=== PATIENT | male | born 1945 | race African-American/Black ===

== ENCOUNTER 2017-07-13 06:08 | Emergency (ER) | payer MEDICARE ==
[~2017-07-13] VITALS: Ht 167.6 cm; Wt 72.5 kg
[~2017-07-13 06:08] MED LIST: MEDR4PAK PO; NAPR500T PO; OMEP10CA PO
[2017-07-13 06:10] VITALS: BP 163/88; PULSE 63; RESP 16; TEMP 98.7; O2SAT 99
[2017-07-13] MEDS ORDERED: SODIUM CHLOR 0.9% 1000 ML INJ 1,000 ML IV ONE (06:45)
--- NOTE | 2017-07-13 06:55 | PD ---
HPI Chief Complaint: Abdominal Pain Time Seen by Provider: 06:31 Travel History International Travel<30 days: No Contact w/Intl Traveler<30days: No Traveled to known affect area: No History of Present Illness HPI This patient ate at a [employer] restaurant last night around 8 or 9 PM. Approximately one hour later he started to get diarrhea. He had diarrhea multiple times throughout the night. No nausea or vomiting or abdominal pain or fever. He feels well but just had a lot of diarrhea. Symptoms severity is mild. No alleviating factors. Duration 10 hours PFSH Past Medical History Medical History: Denies Significant Hx Arthritis: Yes Asthma: No Autoimmune Disease: No Blood Disorders: No Anxiety: No Depression: No Heart Rhythm Problems: No Cancer: No Cardiac Catheterization: No Cardiovascular Problems: No High Cholesterol: Yes Chemotherapy: No Chest Pain: No Congestive Heart Failure: No COPD: No Diabetes: No Diminished Hearing: No Endocrine: No GERD: Yes Genitourinary: No Hypertension: No Immune Disorder: No Inguinal Hernia: Yes Implanted Vascular Access Dvce: No Musculoskeletal: No Neurologic: No Psychiatric: No Reproductive: No Respiratory: No Immunizations Current: No Myocardial Infarction: No Radiation Therapy: No Sleep Apnea: No Thyroid Disease: No Triglycerides - High: Yes Tetanus Vaccination: < 5 Years Influenza Vaccination: No Past Surgical History Surgical History: No Previous Surgery Abdominal Surgery: No Cardiac Surgery: No Coronary Artery Bypass Graft: No Ear Surgery: No Endocrine Surgery: No Eye Surgery: No Genitourinary Surgery: No Gynecologic Surgery: No Neurologic Surgery: No Oral Surgery: No Thoracic Surgery: No Other Surgery: Yes (HERNIA SURGERY 06/04/10) Social History Alcohol Use: No Tobacco Use: No Substance Use: No Allergies-Medications (Allergen,Severity, Reaction): Coded Allergies: No Known Allergies (Verified , 11/22/16) Reported Meds & Prescriptions Reported Meds & Active Scripts Active Review of Systems General / Constitutional: No: Fever Eyes: No: Visual changes HENT: No: Headaches Cardiovascular: No: Chest Pain or Discomfort Respiratory: No: Shortness of Breath Gastrointestinal: Positive: Diarrhea, No: Abdominal Pain Genitourinary: No: Dysuria Musculoskeletal: No: Pain Skin: No Rash Neurologic: No: Weakness Psychiatric: No: Depression Endocrine: No: Polydipsia Hematologic/Lymphatic: No: Easy Bruising Physical Exam Narrative GENERAL: Well-nourished, well-developed patient in no apparent distress. SKIN: Focused skin assessment reveals no rash and nodules. Skin is Warm and dry. HEAD: Atraumatic. Normocephalic. EYES: Pupils equal and round. No scleral icterus. No injection or drainage. ENT: No nasal bleeding or discharge. Mucous membranes pink and moist. NECK: Trachea midline. No JVD. CARDIOVASCULAR: Regular rate and rhythm. No murmur appreciated. RESPIRATORY: No accessory muscle use. Clear to auscultation. Breath sounds equal bilaterally. GASTROINTESTINAL: Abdomen soft, non-tender, nondistended. Hepatic and splenic margins not palpable. MUSCULOSKELETAL: No obvious deformities. No clubbing. No cyanosis. No edema. NEUROLOGICAL: Awake and alert. No obvious cranial nerve deficits. Motor grossly within normal limits. Normal speech. PSYCHIATRIC: Appropriate mood and affect; insight and judgment normal. Data Data Last Documented VS Vital Signs Date Time Temp Pulse Resp B/P (MAP) Pulse Ox O2 Delivery O2 Flow Rate FiO2 07/13/17 06:10 98.7 63 16 163/88 (113) 99 Room Air Orders Orders Iv Access Insert/Monitor (07/13/17 06:44) Sodium Chlor 0.9% 1000 Ml Inj (Ns 1000 M (07/13/17 06:45) MDM Medical Decision Making Medical Screen Exam Complete: Yes Emergency Medical Condition: Yes Medical Record Reviewed: Yes Differential Diagnosis Food poisoning, colitis, gastroenteritis Narrative Course I have reviewed the patient's electronic medical record. Patient's exam is normal and he feels well. I suspect he had some degree of food poisoning IV placed I gave him 1 L normal saline IV He will orally hydrated home I expect gradual resolution over the next 48 hours Diagnosis Primary Impression: Food poisoning Qualified Codes: T62.91XA - Toxic effect of unspecified noxious substance eaten as food, accidental (unintentional), initial encounter Additional Instructions: The patient was advised to follow up with their physician and return if they worsen. Med/Other Pt SpecificInfo: Other Disposition: 01 DISCHARGE HOME Condition: Stable Jarad Kessler MD Jul 13, 2017 06:55
[2017-07-26] MEDS ORDERED: CREON12 PO (15:28)
[2017-09-04] MEDS ORDERED: ASPI-110 PO (16:29)
[2017-09-04] MEDS ORDERED: HYDR2.5%T RECTAL (16:42)
[2017-09-04] MEDS ORDERED: TUCKPAD5 TOPICAL (16:42)
== END 2017-07-13 07:55 | disposition home or self-care (01) ==
LOC: NEPC 06:08
DX: T62.91XA Toxic effect of unspecified noxious substance eaten as food, accidental (unintentional), initial encounter (principal); Y92.511 Restaurant or cafe as the place of occurrence of the external cause; K21.9 Gastro-esophageal reflux disease without esophagitis; E78.00 Pure hypercholesterolemia, unspecified; M19.90 Unspecified osteoarthritis, unspecified site
CPT/HCPCS: 99282; J7030

== ENCOUNTER 2017-10-07 12:34 | Emergency (ER) | payer MEDICARE ==
[~2017-10-07] VITALS: Ht 165.1 cm; Wt 68.0 kg
[~2017-10-07 12:34] MED LIST changes: +ASPI1TAB57 PO; +HYDR2.5%T RECTAL; -MEDR4PAK PO; -NAPR500T PO; -OMEP10CA PO; +TUCKPAD5 TOPICAL
[2017-10-07 12:40] VITALS: BP 131/78; PULSE 76; RESP 14; TEMP 98.2; O2SAT 100
[2017-10-07] MEDS ORDERED: OMEGCAP PO (12:55)
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
--- NOTE | 2017-10-07 13:38 | RADRPT ---
EXAM DATE/TIME: 10/07/2017 13:03 [facility] COMPARISON: No previous studies available for comparison. INDICATIONS : Fracture. Object fell on medial side of ankle. MEDICAL HISTORY : None. SURGICAL HISTORY : None. ENCOUNTER: Initial ACUITY: 1 day PAIN SCORE: 7/10 LOCATION: Right medial malleolus FINDINGS: Three view exam was performed of the right ankle. The bony structures are in normal alignment. No e vidence of fracture, dislocation, or soft tissue swelling. The ankle mortise is intact. No radiopaq ue foreign bodies are seen. Bony mineralization is normal. CONCLUSION: 1. No acute findings. Ahmet Montes MD on October 07, 2017 at 13:36 Board Certified Radiologist. This report was verified electronically.
[2017-10-07] MEDS ORDERED: IBUPROFEN 600 MG TAB PO ONE (14:15)
[2017-10-07 14:39] VITALS: BP 122/85; TEMP 97.8
[2017-10-09] MEDS ORDERED: HYDR2.5%T RECTAL (16:32)
== END 2017-10-07 14:38 | disposition home or self-care (01) ==
LOC: NEPD 12:34
DX: S90.01XA Contusion of right ankle, initial encounter (principal); M19.90 Unspecified osteoarthritis, unspecified site; E78.00 Pure hypercholesterolemia, unspecified; K21.9 Gastro-esophageal reflux disease without esophagitis; Z79.899 Other long term (current) drug therapy; Z79.82 Long term (current) use of aspirin; W22.8XXA Striking against or struck by other objects, initial encounter; Y92.009 Unspecified place in unspecified non-institutional (private) residence as the place of occurrence of the external cause
CPT/HCPCS: 73610; 99283

== ENCOUNTER 2018-03-31 13:01 | Emergency (ER) | payer MEDICARE ==
[~2018-03-31] VITALS: Ht 165.1 cm; Wt 70.0 kg
[~2018-03-31 13:01] MED LIST changes: +CYCL10TA PO; +IBUP-232 PO; +OMEGCAP PO; -TUCKPAD5 TOPICAL
[2018-03-31 13:16] VITALS: BP 138/74; PULSE 70; RESP 16; TEMP 98.6; O2SAT 99
[2018-03-31 13:45] VITALS: O2SAT 99
[2018-03-31 14:21] LABS: BASOPHIL % 0.6 % (0.0-2.0); EOSINOPHIL % 0.6 % (0.0-4.0); HEMATOCRIT 44.2 % (39.0-51.0); LYMPH % 30.7 % (9.0-44.0); LYMPHOCYTE # 1.6 TH/MM3 (1.0-4.8); MEAN CELL VOLUME 91.3 FL (80.0-100.0); MEAN CORPUSCULAR HGB CONC 33.9 % (32.0-36.0); MEAN PLATELET VOLUME 8.5 FL (7.0-11.0); MONO % 11.7 % (0.0-8.0); MONOCYTE # 0.6 TH/MM3 (0-0.9); NEUT % 56.4 % (16.0-70.0); PLATELET COUNT 172 TH/MM3 (150-450); RED BLOOD COUNT 4.84 MIL/MM3 (4.50-5.90); RED CELL DISTRIBUTION WIDTH 13.6 % (11.6-17.2); WHITE BLOOD COUNT 5.3 TH/MM3 (4.0-11.0)
[2018-03-31 14:43] LABS: ALBUMIN 3.7 GM/DL (3.4-5.0); ALT (GPT) 24 U/L (12-78); AST (GOT) 21 U/L (15-37); BLOOD UREA NITROGEN 20 MG/DL (7-18); CALCIUM 8.8 MG/DL (8.5-10.1); CHLORIDE 103 MEQ/L (98-107); CREATININE 1.19 MG/DL (0.60-1.30); GLOMERULAR FILTRATION RATE 73 ML/MIN (>89); GLUCOSE,RANDOM 98 MG/DL (74-106); SODIUM (NA) 139 MEQ/L (136-145)
[2018-03-31 14:45] LABS: ALKALINE PHOSPHATASE 59 U/L (45-117); TOTAL BILIRUBIN ADULT 0.7 MG/DL (0.2-1.0); TOTAL PROTEIN 7.5 GM/DL (6.4-8.2)
[2018-03-31 15:42] LABS: BILIRUBIN, URINE NEG (NEG); BLOOD, URINE NEG (NEG); GLUCOSE,URINE NEG (NEG); KETONE, URINE NEG (NEG); NITRITE,URINE NEG (NEG); URINE COLOR LIGHT-YELLOW (YELLW/STRAW); URINE LEUKOCYTE ESTERASE NEG (NEG)
--- NOTE | 2018-03-31 15:46 | PD ---
HPI . Abdominal pain Chief Complaint: Abdominal Pain Time Seen by Provider: 13:44 Travel History International Travel<30 days: No Contact w/Intl Traveler<30days: No Traveled to known affect area: No History of Present Illness HPI Patient presents with chief complaint of diffuse abdominal pain. Onset was sometime after breakfast this morning. He states that his pain is gradually improving. The pain is now very mild. He denies any associated symptoms such as fever, nausea/vomiting/diarrhea, urinary symptoms. PFSH Past Medical History Arthritis: Yes Asthma: No Autoimmune Disease: No Blood Disorders: No Anxiety: No Depression: No Heart Rhythm Problems: No Cancer: No Cardiac Catheterization: No Cardiovascular Problems: No High Cholesterol: Yes Chemotherapy: No Chest Pain: No Congestive Heart Failure: No COPD: No Diabetes: No Diminished Hearing: No Endocrine: No Gastrointestinal Disorders: No GERD: Yes Genitourinary: No Heparin Induced Thrombocytopen: No Hypertension: No Immune Disorder: No Inguinal Hernia: Yes Implanted Vascular Access Dvce: No Musculoskeletal: No Neurologic: No Psychiatric: No Reproductive: No Respiratory: No Immunizations Current: No Myocardial Infarction: No Radiation Therapy: No Sleep Apnea: No Thyroid Disease: No Triglycerides - High: Yes Past Surgical History Abdominal Surgery: Yes (hernia repair) Cardiac Surgery: No Coronary Artery Bypass Graft: No Ear Surgery: No Endocrine Surgery: No Eye Surgery: No Genitourinary Surgery: No Gynecologic Surgery: No Neurologic Surgery: No Oral Surgery: No Thoracic Surgery: No Other Surgery: Yes (HERNIA SURGERY 06/04/10) Family History Family Myocardial Infarction: No Social History Alcohol Use: No Tobacco Use: No Substance Use: No Allergies-Medications (Allergen,Severity, Reaction): Coded Allergies: No Known Allergies (Verified Adverse Reaction, Unknown, 03/31/18) Reported Meds & Prescriptions Reported Meds & Active Scripts Active Ibuprofen 600 Mg Tab 600 Mg PO Q8H PRN Flexeril (Cyclobenzaprine HCl) 10 Mg Tab 10 Mg PO TID Anusol-Hc Rectal (Hydrocortisone Rectal) 2.5% Cream 1 Applic RECTAL QID Reported [place]-3 Fish Oil/Vitamin (Fish Oil-Cholecalciferol) 1,000-1,000 Mg Cap 1 Cap PO DAILY Review of Systems Except as stated in HPI: all other systems reviewed are Neg Physical Exam Narrative GENERAL: Awake and alert and in no acute distress. SKIN: Warm and dry. HEAD: Normocephalic/atraumatic. EYES: Pupils are equal. Extraocular movements are intact. NECK: Normal range of motion. CARDIOVASCULAR: Regular rate and rhythm. RESPIRATORY: Nonlabored respirations. ABDOMEN: Soft and nontender throughout. Positive bowel sounds. MUSCULOSKELETAL: Atraumatic. NEUROLOGICAL: Nonfocal. PSYCHIATRIC: Appropriate mood and affect. Data Data Last Documented VS Vital Signs Date Time Temp Pulse Resp B/P (MAP) Pulse Ox O2 Delivery O2 Flow Rate FiO2 03/31/18 13:45 99 Room Air 03/31/18 13:16 98.6 70 16 138/74 (95) Orders Orders Complete Blood Count With Diff (03/31/18 13:45) Comprehensive Metabolic Panel (03/31/18 13:45) Lipase (03/31/18 13:45) Urinalysis - C+S If Indicated (03/31/18 13:45) Iv Access Insert/Monitor (03/31/18 13:45) Ecg Monitoring (03/31/18 13:45) Oximetry (03/31/18 13:45) Labs Laboratory Tests Test 03/31/18 13:55 03/31/18 15:10 White Blood Count 5.3 TH/MM3 Red Blood Count 4.84 MIL/MM3 Hemoglobin 15.0 GM/DL Hematocrit 44.2 % Mean Corpuscular Volume 91.3 FL Mean Corpuscular Hemoglobin 31.0 PG Mean Corpuscular Hemoglobin Concent 33.9 % Red Cell Distribution Width 13.6 % Platelet Count 172 TH/MM3 Mean Platelet Volume 8.5 FL Neutrophils (%) (Auto) 56.4 % Lymphocytes (%) (Auto) 30.7 % Monocytes (%) (Auto) 11.7 % Eosinophils (%) (Auto) 0.6 % Basophils (%) (Auto) 0.6 % Neutrophils # (Auto) 3.0 TH/MM3 Lymphocytes # (Auto) 1.6 TH/MM3 Monocytes # (Auto) 0.6 TH/MM3 Eosinophils # (Auto) 0.0 TH/MM3 Basophils # (Auto) 0.0 TH/MM3 CBC Comment DIFF FINAL Differential Comment Blood Urea Nitrogen 20 MG/DL Creatinine 1.19 MG/DL Random Glucose 98 MG/DL Total Protein 7.5 GM/DL Albumin 3.7 GM/DL Calcium Level 8.8 MG/DL Alkaline Phosphatase 59 U/L Aspartate Amino Transf (AST/SGOT) 21 U/L Alanine Aminotransferase (ALT/SGPT) 24 U/L Total Bilirubin 0.7 MG/DL Sodium Level 139 MEQ/L Potassium Level 4.0 MEQ/L Chloride Level 103 MEQ/L Carbon Dioxide Level 28.0 MEQ/L Anion Gap 8 MEQ/L Estimat Glomerular Filtration Rate 73 ML/MIN Lipase 158 U/L Urine Color LIGHT-YELLOW Urine Turbidity CLEAR Urine pH 5.0 Urine Specific [place] 1.007 Urine Protein NEG mg/dL Urine Glucose (UA) NEG mg/dL Urine Ketones NEG mg/dL Urine Occult Blood NEG Urine Nitrite NEG Urine Bilirubin NEG Urine Urobilinogen LESS THAN 2.0 MG/DL Urine Leukocyte Esterase NEG Microscopic Urinalysis Comment CULT NOT INDICATED MDM Medical Decision Making Medical Screen Exam Complete: Yes Emergency Medical Condition: Yes Differential Diagnosis Differential diagnosis of abdominal pain includes but is not limited to gastritis, pancreatitis, hepatitis, gastroenteritis, constipation, urinary retention, peptic ulcer disease, diverticulitis or appendicitis Narrative Course This patient presents with diffuse abdominal pain which started this morning and which has been gradually improving throughout the course of the day. His exam is benign. CBC & BMP Diagram 03/31/18 13:55 Total Protein 7.5, Albumin 3.7, Calcium Level 8.8, Alkaline Phosphatase 59, Aspartate Amino Transf (AST/SGOT) 21, Alanine Aminotransferase (ALT/SGPT) 24, Total Bilirubin 0.7 UA>> negative for infection Diagnosis Primary Impression: Abdominal pain Qualified Codes: R10.84 - Generalized abdominal pain Patient Instructions: Abdominal Pain (ED), General Instructions Disposition: 01 DISCHARGE HOME Condition: Stable Johnna Alvarenga MD March 31, 2018 15:46
[2018-03-31 16:22] VITALS: BP 128/71
== END 2018-03-31 16:27 | disposition home or self-care (01) ==
LOC: NEPD 13:01
DX: R10.84 Generalized abdominal pain (principal); E78.5 Hyperlipidemia, unspecified; K21.9 Gastro-esophageal reflux disease without esophagitis; Z87.39 Personal history of other diseases of the musculoskeletal system and connective tissue
CPT/HCPCS: 80053; 81001; 83690; 85025; 99283